=== PATIENT | female | born 1975 | race Asian ===

== ENCOUNTER → 2017-07-23 | Outpatient (CLI) | payer OTHER | LOC: M LRY 19:03 | DX: M17.12 Unilateral primary osteoarthritis, left knee (principal) | CPT/HCPCS: 73564 ==

== ENCOUNTER → 2017-11-09 | Outpatient (REF) | payer OTHER | LOC: M SFHCLERA 20:36 | DX: J02.9 Acute pharyngitis, unspecified (principal) ==

== ENCOUNTER → 2017-12-10 | Outpatient (CLI) | payer OTHER, SELFPAY | LOC: M LRY 19:11 | DX: S89.92XA Unspecified injury of left lower leg, initial encounter (principal); M79.89 Other specified soft tissue disorders; X58.XXXA Exposure to other specified factors, initial encounter; Y92.9 Unspecified place or not applicable | CPT/HCPCS: 73564 ==

== ENCOUNTER → 2018-06-08 | Outpatient (CLI) | payer OTHER ==
[~2018-06-08] MED LIST: ACET65TA OR; ASPI325T OR; PERC7.5T8 OR
--- NOTE | 2018-06-09 02:58 | REP ---
Clinical: Pre-employment physical. Positive PPD test. Comparison: None . Technique: PA and lateral. Findings: The mediastinum and cardiac silhouette are normal. The lung coates are clear and without acute consolidation, effusion, or pneumothorax. The skeletal structures are intact and normal. Impression: 1. No acute cardiopulmonary process. Electronically Signed by Demarco Andino MD 06/09/2018 02:49 A
== END ==
LOC: M WUC 11:02
PROVIDERS: ATTEND Physician Assistant
DX: Z02.1 Encounter for pre-employment examination (principal); R76.11 Nonspecific reaction to tuberculin skin test without active tuberculosis

== ENCOUNTER → 2019-03-31 | Outpatient (CLI) | payer OTHER ==
--- NOTE | 2019-03-31 20:45 | REP ---
RIGHT KNEE SERIES, FIVE VIEWS: Five views right knee performed. No acute fracture or dislocation is seen. There is mild spurring of the lateral patellar facet. There is mild joint space narrowing diffusely with mild spurring. There is a moderate joint effusion. IMPRESSION: Mild degenerative changes. Moderate joint effusion. Electronically Signed by Ramsey Douglas MD 04/01/2019 12:49 P
== END ==
LOC: M LRY 19:22
PROVIDERS: ATTEND Nurse Practitioner Family
DX: M25.561 Pain in right knee (principal)

== ENCOUNTER 2020-03-01 17:40 | Emergency (ER) | payer OTHER ==
[~2020-03-01] VITALS: Ht 172.7 cm; Wt 97.3 kg
[2020-03-01] MEDS ORDERED: LISI20TA35 (17:47)
[2020-03-01] MEDS ORDERED: IBUPROFEN 600MG TAB PO ONE (19:00)
--- NOTE | 2020-03-01 19:28 | REP ---
INDICATION: fall injury COMPARISON: None. TECHNIQUE: AP, lateral, bilateral oblique views of the right elbow. FINDINGS: Mild age-related changes are appreciated. No obvious acute fracture or dislocation. Anterior and posterior fat pads are in normal position without evidence for hemarthrosis. IMPRESSION: No acute fracture or dislocation appreciated <Electronically signed by Demarco Andino > 03/01/20 [id number]
--- NOTE | 2020-03-01 19:29 | REP ---
INDICATION: fall injury COMPARISON: None. TECHNIQUE: AP, lateral, bilateral oblique, and coned-down views of the lumbar spine. FINDINGS: Alignment and lordosis maintained. No evidence for acute fracture/compression injury or subluxation. Osteopenia and moderate multilevel degenerative disc osteophyte complexes are appreciated including hypertrophic facet changes. IMPRESSION: Osteopenia and multilevel degenerative spondylosis. No acute fracture/compression injury or subluxation appreciated. <Electronically signed by Demarco Andino > 03/01/20 [id number]
--- NOTE | 2020-03-01 19:30 | REP ---
INDICATION: fall injury COMPARISON: None. TECHNIQUE: Internal rotation, external rotation, and Y view. FINDINGS: No acute fracture or dislocation. The acromioclavicular and glenohumeral joints are intact. No periarticular calcifications or degenerative changes are appreciated. Sub acromial space is normal. Surrounding soft tissues are unremarkable. IMPRESSION: No acute fracture or dislocation appreciated. <Electronically signed by Demarco Andino > 03/01/20 [id number]
[2020-03-01 19:49] VITALS: BP 134/91
== END 2020-03-01 20:13 | disposition home or self-care (01) ==
LOC: M ED 17:40
DX: S40.011A Contusion of right shoulder, initial encounter (principal); S50.01XA Contusion of right elbow, initial encounter; S30.0XXA Contusion of lower back and pelvis, initial encounter; W00.0XXA Fall on same level due to ice and snow, initial encounter; Y92.014 Private driveway to single-family (private) house as the place of occurrence of the external cause; Y93.9 Activity, unspecified; Y99.9 Unspecified external cause status; M47.817 Spondylosis without myelopathy or radiculopathy, lumbosacral region; M85.88 Other specified disorders of bone density and structure, other site; F33.9 Major depressive disorder, recurrent, unspecified; Z79.899 Other long term (current) drug therapy

== ENCOUNTER → 2023-01-05 | Outpatient (CLI) | payer OTHER ==
[~2023-01-05] MED LIST changes: +LISI20TA35
== END ==
LOC: M WUC 09:20
PROVIDERS: ATTEND Registered Nurse
DX: M75.31 Calcific tendinitis of right shoulder (principal); M25.562 Pain in left knee; M25.511 Pain in right shoulder

== ENCOUNTER 2024-12-21 13:52 | Emergency (ER) | payer OTHER ==
[~2024-12-21] VITALS: Ht 170.2 cm; Wt 121.6 kg
[2024-12-21 19:13] VITALS: BP 177/91; TEMP 97.4; O2SAT 100
== END 2024-12-21 19:17 | disposition home or self-care (01) ==
LOC: M ED 13:52
DX: S09.90XA Unspecified injury of head, initial encounter (principal); W22.09XA Striking against other stationary object, initial encounter; I10 Essential (primary) hypertension; F32.A Depression, unspecified; Z79.1 Long term (current) use of non-steroidal anti-inflammatories (NSAID); Z79.82 Long term (current) use of aspirin; Z79.899 Other long term (current) drug therapy; Y92.89 Other specified places as the place of occurrence of the external cause; Y93.89 Activity, other specified; Y99.0 Civilian activity done for income or pay